=== PATIENT | female | born 2005 | race Caucasian/White ===

== ENCOUNTER 2024-10-18 13:23 | Outpatient (CLI) | payer MEDICAID, SELFPAY ==
--- NOTE | 2024-10-18 13:32 | US_ITS ---
WS: [id number] RENAL ULTRASOUND HISTORY: HEMATURIA COMPARISON: None available. TECHNIQUE: 2-D and color Doppler imaging of the kidney submitted. Right kidney: 11.7 cm x 4.7 cm x 4.9 cm. Cortex: 1.3 cm Normal echogenicity with no hydronephrosis or mass. Left kidney: 11.9 cm x 5.1 cm x 4.8 cm. Cortex: 1.4 cm Normal echogenicity with no hydronephrosis or mass. Aorta: Normal. Urinary Bladder: Normal distention. US/US renal BI* [id number] IMPRESSION: Normal renal ultrasound.
--- NOTE | 2024-10-18 13:44 | XR_ITS ---
WS: [id number] Exam: XR knee RT 3V* [id number] Date/Time of Exam: 10/18/2024 1:50 PM Reason For Exam: PAIN IN RIGHT KNEE No fracture. The joints are preserved. No soft tissue abnormality. No joint effusion. XR/XR knee RT 3V* [id number] IMPRESSION: 1. Normal RIGHT knee.
== END 2024-10-18 13:24 | disposition home or self-care (01) ==
LOC: RAD 13:29
PROVIDERS: Family Provider Family Medicine; PCP Family Medicine; Visit Provider Nurse Practitioner Family
DX: M25.561 Pain in right knee (principal); G89.29 Other chronic pain; R31.9 Hematuria, unspecified; M54.50 Low back pain, unspecified; N30.91 Cystitis, unspecified with hematuria
CPT/HCPCS: 73562; 76770

== ENCOUNTER 2024-10-26 09:00 | Outpatient (CLI) | payer MEDICAID, SELFPAY ==
--- NOTE | 2024-10-26 09:03 | MR_ITS ---
WS: [id number] MRI RIGHT KNEE NONCONTRAST TECHNIQUE: Axial PD, coronal PD fat sat, coronal PD, sagittal PD, and sagittal PD fat-sat images obtained. CLINICAL INFORMATION: PAIN IN R KNEE COMPARISON: None. FINDINGS: Distal quadriceps and patellar tendons are intact. Normal ACL and PCL. Medial and lateral meniscus are normal in appearance. No acute appearing meniscal tears. Normal marrow signal in the distal femur and tibial plateau. Normal bone marrow signal in the femoral condyles. Mild chondromalacia patella. Normal medial and lateral patellar retinaculum. Fibula head appears normal. Medial and lateral collateral ligaments are normal. Normal popliteus. Normal popliteal fossa. MR/MR knee RT wo con* [id number] IMPRESSION: 1. Normal ACL and PCL. 2. Medial and lateral meniscus are intact. 3. Mild chondromalacia patella. 4. Medial lateral collateral ligaments appear intact. 5. No other acute findings Outbridge grading: grade II: blister-like swelling/fraying of articular cartila ge extending to surface
== END 2024-10-26 09:01 | disposition home or self-care (01) ==
PROVIDERS: Family Provider Family Medicine; PCP Family Medicine; Visit Provider Nurse Practitioner Family
DX: M22.41 Chondromalacia patellae, right knee (principal); R93.6 Abnormal findings on diagnostic imaging of limbs
CPT/HCPCS: 73721